=== PATIENT | female | born 1980 ===

== ENCOUNTER → 2018-03-30 21:19 | Outpatient (REF) | payer OTHER, SELFPAY ==
[2018-03-31 07:34] LABS: Follicle Stimulating Hormone 5.32 mIU/mL; Luteinizing Hormone 1.98 mIU/mL
[2018-04-01 14:42] LABS: CMV IgM Antibody < 30.00 AU/mL (< 30.00)
[2018-04-01 15:25] LABS: Estradiol 31 pg/mL
[2018-04-01 16:23] LABS: Sex Hormone Binding Globulin 34 nmol/L (17-124)
[2018-04-04 10:22] LABS: Testosterone Total 24 ng/dL (2-45)
[2018-04-05 14:33] LABS: Dehydroepiandrosterone Sulfate 271 mcg/dL (23-266)
[2018-04-06 18:21] LABS: Dihydrotestosterone 6 ng/dL (5-46)
== END ==
LOC: LAB 21:19
PROVIDERS: Visit Provider Acupuncturist
DX: L68.0 Hirsutism (principal); R53.83 Other fatigue; N94.3 Premenstrual tension syndrome
CPT/HCPCS: 36415; 80327; 82627; 82670; 83001; 83002; 84270; 84402; 84403; 86644; 86645